=== PATIENT | male | born 1960 | race Caucasian/White ===

== ENCOUNTER → 2024-01-22 12:56 | Outpatient (CLI) | payer OTHER, SELFPAY ==
--- NOTE | 2024-01-22 14:00 | DI.CT.S_ITS ---
PROCEDURE: CT LUNG LOW DOSE SCREENING INDICATIONS: Nicotine dependence, unspecified, in remission TECHNIQUE: Noncontrast 2.0-2.5 mm thick sections acquired from the pulmonary apices to the posterior costophrenic angles. 7 mm thick axial MIP, and 5 mm coronal and sagittal reformats were then acquired. For radiation dose reduction, the following was used: automated exposure control, adjustment of mA and/or kV according to patient size. COMPARISON: None. FINDINGS: Image quality: Diagnostic. Lower Neck: No enlarged lymph nodes. Thyroid: No thyroid nodules which require sonographic follow up, per consensus guidelines. Axillae: No enlarged lymph nodes. Chest Wall: Unremarkable. Bones: Visualized osseous structures appear intact without acute fracture or focal destructive lesion. No acute compression fractures of the imaged spine. Lungs and Pleura: No pneumothorax or pleural effusions. Biapical scarring. 4 mm fissural based nodule likely representing a lymph node (144/series 3). Tiny punctate calcified granuloma in the posterior right lower lobe (217/series 3). Otherwise, no suspicious pulmonary nodules identified. Mild upper lobe predominant pulmonary emphysematous changes. Heart: Heart size is normal. No pericardial effusion. Thoracic Vessels: The aorta and pulmonary arteries demonstrate normal size. Mediastinum and Rere: No enlarged lymph nodes. Esophagus: No wall thickening. No hiatal hernia. Upper Abdomen: Visualized upper abdomen solid organs and bowel loops appear normal. IMPRESSION: No suspicious pulmonary nodules. Punctate calcified right lower lobe pulmonary granuloma and 4 mm intra fissural lymph node identified. No acute cardiopulmonary abnormalities. LUNG-RADS 2; continued annual screening, if eligible. Clinically Significant Non-pulmonary Findings: None. Dictated by: Tino Farmer M.D. on 01/22/2024 at 14:31 Approved by: Tino Farmer M.D. on 01/22/2024 at 14:40
== END ==
LOC: CT 12:59
PROVIDERS: PCP Physician Assistant; Referring Provider Physician Assistant; Visit Provider Physician Assistant
DX: J44.9 Chronic obstructive pulmonary disease, unspecified (principal); J98.4 Other disorders of lung; F17.201 Nicotine dependence, unspecified, in remission
CPT/HCPCS: 71271